=== PATIENT | male | born 1945 | race Two or more races ===

== ENCOUNTER 2017-08-12 23:12 | Emergency (ER) | payer SELFPAY ==
[2017-08-13 02:02] LABS: Mean Corpuscular Hemoglobin 23.5 pg (28.0-32.0); Platelet Count (auto) 162 10^3/uL (140-450); White Blood Cell 9.9 10^3/uL (4.4-10.8)
[2017-08-13 02:04] LABS: Hematocrit 31.9 % (41.0-53.0); Hemoglobin 10.1 g/dL (13.5-17.5); Mean Corpuscular Hgb Conc. 31.8 g/dL (32.0-36.0); Mean Corpuscular Volume 73.8 fL (80.0-100.0); Red Blood Cells 4.32 10^6/uL (4.5-5.90); Red Cell Distribution Width 17.3 % (11.8-14.3)
[2017-08-13 02:07] LABS: Basophils % (manual) 0 (0.0-2.0); Blast Cells 0; Metamyelocytes % 0; Myelocytes % 0; Promyelocytes % 0; Reactive Lymphocytes 0
[2017-08-13 02:23] LABS: Albumin 3.2 g/dL (3.4-5.0); Calcium 9.1 mg/dL (8.5-10.1); Magnesium 2.5 mg/dL (1.6-2.6); Potassium 4.8 mmol/L (3.5-5.1)
[2017-08-13 02:25] LABS: BUN/Creatinine Ratio 16.5
[2017-08-13 02:27] LABS: Bilirubin, Total 0.9 mg/dL (0.2-1.0)
[2017-08-13 05:30] LABS: Band Neutrophils % (manual) 1; Eosinophils % (manual) 4 (0-7); Lymphocytes % (manual) 50 (10.0-50.0); Monocytes % (manual) 10 (0-12)
[2017-08-13 05:58] VITALS: BP 134/76
== END 2017-08-13 05:58 | disposition left against medical advice (07) ==
LOC: ER 23:12
DX: R07.89 Other chest pain (principal); K80.20 Calculus of gallbladder without cholecystitis without obstruction; K57.30 Diverticulosis of large intestine without perforation or abscess without bleeding; N28.89 Other specified disorders of kidney and ureter; R16.1 Splenomegaly, not elsewhere classified; I10 Essential (primary) hypertension; Z53.21 Procedure and treatment not carried out due to patient leaving prior to being seen by health care provider
CPT/HCPCS: 36415; 71045; 74176; 80053; 83690; 83735; 83880; 84484; 85007; 85027; 93005

== ENCOUNTER 2018-01-10 18:47 | Inpatient (IN) | payer MEDICAID ==
[~2018-01-10] VITALS: Ht 167.6 cm; Wt 65.6 kg
[2018-01-10 19:19] LABS: Basophils # (auto) 0 uL; Eosinophils # (auto) 0.2 uL; Mean Corpuscular Hemoglobin 26.2 pg (28.0-32.0); Monocytes # (auto) 0.4 uL; Neutrophils # (auto) 1.7 uL; White Blood Cell 3.3 10^3/uL (4.4-10.8)
[2018-01-10 19:21] LABS: Eosinophils % (auto) 5.9 % (0.0-7.0); Hematocrit 26.8 % (41.0-53.0); Lymphocytes % (auto) 29.8 % (10.0-50.0); Mean Corpuscular Hgb Conc. 33.7 g/dL (32.0-36.0); Mean Corpuscular Volume 77.7 fL (80.0-100.0); Monocytes % (auto) 11.3 % (0.0-12.0); Nucleated Red Blood Cells % 0.1 %; Red Blood Cells 3.45 10^6/uL (4.5-5.90); Red Cell Distribution Width 14.8 % (11.8-14.3)
[2018-01-10 19:38] LABS: Platelet Count (auto) 101 10^3/uL (140-450)
[2018-01-10 19:52] LABS: Albumin 2.8 g/dL (3.4-5.0); Bilirubin, Total 0.5 mg/dL (0.2-1.0); Calcium 7.9 mg/dL (8.5-10.1); Potassium 3.9 mmol/L (3.5-5.1); Total Protein 5.7 g/dL (6.4-8.2)
[2018-01-10] MEDS ORDERED: FUROSEMIDE 40 MG/4 ML VIAL IV ONE (20:30)
[2018-01-10] MEDS ORDERED: NITROGLYCERIN 0.4 MG SL TAB SL PRN (21:45)
[2018-01-10] MEDS ORDERED: TEMAZEPAM 15 MG CAP PO PRN (21:45)
[2018-01-10] MEDS ORDERED: MORPHINE SULF(PF) 0.5MG/ML 10ML VIAL IV PRN (21:45)
[2018-01-10] MEDS ORDERED: ACETAMINOPHEN 325 MG TAB PO PRN (21:45)
[2018-01-10] MEDS ORDERED: HYDROcodone-ACET 5/325MG TAB PO PRN (21:45)
[2018-01-10] MEDS ORDERED: ONDANSETRON HCL 4 MG/2 ML VIAL IV PRN (21:45)
[2018-01-10] MEDS: FAMOTIDINE 20 MG TAB PO SCH (22:23)
[2018-01-10 23:10] VITALS: BP 135/74
[2018-01-10] MEDS: DOCUSATE SOD 100 MG CAP PO PRN (23:47)
[2018-01-11] MEDS ORDERED: ASPI81CH43 PO (00:14)
[2018-01-11 04:58] VITALS: BP 125/67
[2018-01-11 05:35] LABS: Basophils # (auto) 0 uL; Eosinophils # (auto) 0.2 uL; Lymphocytes # (auto) 1.4 uL; Monocytes # (auto) 0.5 uL; Neutrophils # (auto) 1.7 uL; White Blood Cell 3.9 10^3/uL (4.4-10.8)
[2018-01-11 05:39] LABS: Basophils % (auto) 0.7 % (0.0-2.0); Eosinophils % (auto) 6.5 % (0.0-7.0); Hemoglobin 9.3 g/dL (13.5-17.5); Lymphocytes % (auto) 37.1 % (10.0-50.0); Mean Corpuscular Hgb Conc. 34.5 g/dL (32.0-36.0); Mean Corpuscular Volume 76.6 fL (80.0-100.0); Monocytes % (auto) 12.5 % (0.0-12.0); Neutrophils % (auto) 43.2 % (37.0-80.0); Nucleated Red Blood Cells % 0.1 %; Platelet Count (auto) 107 10^3/uL (140-450); Red Blood Cells 3.53 10^6/uL (4.5-5.90); Red Cell Distribution Width 14.7 % (11.8-14.3)
[2018-01-11 05:43] LABS: Mean Corpuscular Hemoglobin 26.5 pg (28.0-32.0)
[2018-01-11 06:02] LABS: Albumin 2.9 g/dL (3.4-5.0); Bilirubin, Total 0.7 mg/dL (0.2-1.0); Calcium 8.3 mg/dL (8.5-10.1); Potassium 3.5 mmol/L (3.5-5.1); Total Protein 5.7 g/dL (6.4-8.2)
[2018-01-11 09:00] VITALS: BP 130/64
[2018-01-11] MEDS: FAMOTIDINE 20 MG TAB PO SCH ×2 (09:03→21:17)
[2018-01-11] MEDS: ENOXAPARIN SOD 40 MG/0.4 ML SYRINGE SC SCH (09:03)
[2018-01-11] MEDS ORDERED: ASPirin 81 mg TAB PO SCH (10:00)
[2018-01-11] MEDS ORDERED: CLOPIDOGREL 300 MG TAB PO ONE (10:45)
[2018-01-11] MEDS ORDERED: CARVEDILOL 3.125 MG TAB PO ONE (10:45)
[2018-01-11 13:00] VITALS: BP 134/60
[2018-01-11 13:45] LABS: % Iron Saturation 9.6 % (20-55)
[2018-01-11 16:55] VITALS: BP 106/57
[2018-01-11] MEDS: ATORVASTATIN 20 MG TAB PO SCH (21:16)
[2018-01-11] MEDS: CARVEDILOL 3.125 MG TAB PO SCH (21:17)
[2018-01-11 21:20] VITALS: BP 119/60
[2018-01-12 05:28] VITALS: BP 103/40
[2018-01-12 05:57] LABS: White Blood Cell 3.3 10^3/uL (4.4-10.8)
[2018-01-12 06:01] LABS: Hematocrit 25.8 % (41.0-53.0); Hemoglobin 8.9 g/dL (13.5-17.5); Mean Corpuscular Hemoglobin 26.5 pg (28.0-32.0); Mean Corpuscular Hgb Conc. 34.5 g/dL (32.0-36.0); Red Blood Cells 3.34 10^6/uL (4.5-5.90); Red Cell Distribution Width 14.6 % (11.8-14.3)
[2018-01-12 06:02] LABS: Platelet Count (auto) 93 10^3/uL (140-450)
[2018-01-12 06:03] LABS: Band Neutrophils % (manual) 0; Basophils % (manual) 0 (0.0-2.0); Blast Cells 0; Metamyelocytes % 0; Myelocytes % 0; Promyelocytes % 0; Reactive Lymphocytes 0
[2018-01-12 06:27] LABS: BUN/Creatinine Ratio 14.6; Calcium 7.6 mg/dL (8.5-10.1); Magnesium 1.8 mg/dL (1.6-2.6); Potassium 3.9 mmol/L (3.5-5.1)
[2018-01-12 06:55] LABS: Eosinophils % (manual) 7 (0-7); Lymphocytes % (manual) 36 (10.0-50.0); Monocytes % (manual) 8 (0-12)
[2018-01-12 08:00] VITALS: BP 102/51
[2018-01-12] MEDS: CARVEDILOL 3.125 MG TAB PO SCH ×2 (10:00→22:20)
[2018-01-12] MEDS: FAMOTIDINE 20 MG TAB PO SCH ×2 (10:16→22:20)
[2018-01-12] MEDS: CLOPIDOGREL BISULFATE 75 MG TAB PO SCH (10:16)
[2018-01-12] MEDS: ASPirin 81 mg TAB PO SCH (10:17)
[2018-01-12] MEDS: ENOXAPARIN SOD 40 MG/0.4 ML SYRINGE SC SCH (10:26)
[2018-01-12] MEDS: DOCUSATE SOD 100 MG CAP PO PRN (10:31)
[2018-01-12] MEDS ORDERED: MAGNESIUM SULFATE 1GM/100ML 100 ML IV ONE (11:15)
[2018-01-12 12:00] VITALS: BP 99/67
[2018-01-12] MEDS: SODIUM CHLORIDE 0.9% 1,000 ML IV SCH (12:00)
[2018-01-12 16:48] LABS: Urine Amorphous Crystal FEW /hpf (None Seen); Urine Bacteria NONE SEEN /hpf (None Seen); Urine Blood 1+ /uL (Negative); Urine Mucus FEW (None Seen); Urine Specific Gravity 1.009 (1.001-1.035); Urine WBC 2 /hpf (0 - 3)
[2018-01-12 17:00] VITALS: BP 92/55
[2018-01-12 22:00] VITALS: BP 104/55
[2018-01-12] MEDS: ATORVASTATIN 20 MG TAB PO SCH (22:20)
[2018-01-13] MEDS: SODIUM CHLORIDE 0.9% 1,000 ML IV SCH (05:00)
[2018-01-13 05:45] LABS: Hemoglobin 8.1 g/dL (13.5-17.5); Platelet Count (auto) 80 10^3/uL (140-450); Red Blood Cells 3.05 10^6/uL (4.5-5.90); Red Cell Distribution Width 14.6 % (11.8-14.3)
[2018-01-13 05:49] LABS: Hematocrit 23.2 % (41.0-53.0); Mean Corpuscular Hgb Conc. 34.7 g/dL (32.0-36.0)
[2018-01-13 05:53] LABS: Mean Corpuscular Hemoglobin 26.5 pg (28.0-32.0); White Blood Cell 3.2 10^3/uL (4.4-10.8)
[2018-01-13 05:54] LABS: Band Neutrophils % (manual) 0; Basophils % (manual) 0 (0.0-2.0); Blast Cells 0; Metamyelocytes % 0; Myelocytes % 0; Promyelocytes % 0; Reactive Lymphocytes 0
[2018-01-13 06:01] VITALS: BP 95/56
[2018-01-13 06:01] LABS: BUN/Creatinine Ratio 18.4; Calcium 7.3 mg/dL (8.5-10.1); Potassium 3.6 mmol/L (3.5-5.1)
[2018-01-13 06:47] LABS: Eosinophils % (manual) 9 (0-7); Lymphocytes % (manual) 38 (10.0-50.0); Monocytes % (manual) 12 (0-12)
[2018-01-13 08:28] VITALS: BP 119/64
[2018-01-13] MEDS: FAMOTIDINE 20 MG TAB PO SCH ×2 (09:32→21:46)
[2018-01-13] MEDS: ENOXAPARIN SOD 40 MG/0.4 ML SYRINGE SC SCH (09:32)
[2018-01-13] MEDS: ASPirin 81 mg TAB PO SCH (09:32)
[2018-01-13] MEDS: CLOPIDOGREL BISULFATE 75 MG TAB PO SCH (09:32)
[2018-01-13] MEDS ORDERED: IOHEXOL 300 MG/ML 75ml BOTTLE IJ ONE (11:51)
[2018-01-13] MEDS: SODIUM FERR GLUC 62.5MG/5ML 125 MG in SODIUM CHL 0.9% 100 ML IV SCH (13:29)
[2018-01-13 16:07] VITALS: BP 107/54
[2018-01-13] MEDS: ATORVASTATIN 20 MG TAB PO SCH (21:46)
[2018-01-13 22:00] VITALS: BP 109/63
[2018-01-14 05:54] LABS: Hemoglobin 8.5 g/dL (13.5-17.5); Red Blood Cells 3.22 10^6/uL (4.5-5.90); White Blood Cell 3.2 10^3/uL (4.4-10.8)
[2018-01-14 06:00] LABS: Hematocrit 24.9 % (41.0-53.0); Mean Corpuscular Hemoglobin 26.4 pg (28.0-32.0); Mean Corpuscular Hgb Conc. 34.2 g/dL (32.0-36.0); Mean Corpuscular Volume 77.1 fL (80.0-100.0); Platelet Count (auto) 92 10^3/uL (140-450); Red Cell Distribution Width 14.8 % (11.8-14.3)
[2018-01-14 06:04] VITALS: BP 104/56
[2018-01-14 06:11] LABS: Band Neutrophils % (manual) 0
[2018-01-14 06:12] LABS: Basophils % (manual) 0 (0.0-2.0); Blast Cells 0; Metamyelocytes % 0; Myelocytes % 0; Promyelocytes % 0; Reactive Lymphocytes 0
[2018-01-14 06:43] LABS: Eosinophils % (manual) 7 (0-7); Lymphocytes % (manual) 40 (10.0-50.0); Monocytes % (manual) 9 (0-12)
[2018-01-14 08:00] VITALS: BP 96/53
[2018-01-14 08:40] VITALS: BP 96/53
[2018-01-14] MEDS: ENOXAPARIN SOD 40 MG/0.4 ML SYRINGE SC SCH (09:31)
[2018-01-14] MEDS: ASPirin 81 mg TAB PO SCH (09:31)
[2018-01-14] MEDS: CLOPIDOGREL BISULFATE 75 MG TAB PO SCH (09:31)
[2018-01-14] MEDS: FAMOTIDINE 20 MG TAB PO SCH (09:31)
[2018-01-14] MEDS ORDERED: FER325T PO (11:01)
[2018-01-14] MEDS ORDERED: CLOP75TA28 PO (11:01)
[2018-01-14] MEDS: SODIUM FERR GLUC 62.5MG/5ML 125 MG in SODIUM CHL 0.9% 100 ML IV SCH (11:50)
[2018-01-14 12:52] VITALS: BP 96/56
[2018-01-14 13:00] VITALS: BP 120/65
[2018-01-14 13:36] VITALS: BP 96/56
== END 2018-01-14 15:53 | disposition home or self-care (01) | DRG 194 ==
LOC: ER 18:47 → TELE 18:48 → TELE-CENTR 23:00
PROVIDERS: ADMIT Nurse Practitioner; ATTEND Internal Medicine
DX: I11.0 Hypertensive heart disease with heart failure (principal); D61.818 Other pancytopenia; E44.0 Moderate protein-calorie malnutrition; R16.1 Splenomegaly, not elsewhere classified; N28.1 Cyst of kidney, acquired; I24.9 Acute ischemic heart disease, unspecified; I50.43 Acute on chronic combined systolic (congestive) and diastolic (congestive) heart failure; R07.89 Other chest pain; D50.9 Iron deficiency anemia, unspecified; E78.5 Hyperlipidemia, unspecified; I25.10 Atherosclerotic heart disease of native coronary artery without angina pectoris; Z95.5 Presence of coronary angioplasty implant and graft; Z82.49 Family history of ischemic heart disease and other diseases of the circulatory system; N28.89 Other specified disorders of kidney and ureter; Z68.23 Body mass index [BMI] 23.0-23.9, adult
CPT/HCPCS: 36415; 71046; 74178; 80048; 80053; 80061; 81001; 82270; 83540; 83550; 83735; 83880; 84484; 85007; 85025; 85027; 87040; 87086; 93005; 94761; 96374; Q9967